=== PATIENT | male | born 1970 | race Two or more races ===

== ENCOUNTER 2016-08-12 01:25 | Emergency (ER) | payer MEDICARE, MEDICAID ==
[~2016-08-12] VITALS: Ht 172.7 cm; Wt 77.1 kg
[2016-08-12] MEDS ORDERED: LORAZEPAM INJ 2 MG/ML VIAL ONE ×3 (01:32→02:59)
--- NOTE | 2016-08-12 01:32 | NUR ---
PT BIBWIFE, PT STATES "I CANT STOP MOVING MY LEGS" PT NOTED VERY ANXIOUS. PT STATES LAST TOOK ALPRAZOLAM 2MG @2300. PT AOX3 RR EVEN AND UNLABORED. NO SOB NOTED. NAD NOTED. NO NVD AT THIS TIME. PT GOWNED AND PLACED ON MONITOR. DR. YATES AT BEDSIDE FOR EVAL.
[2016-08-12] MEDS ORDERED: diphenhydrAMINE HCL 50 MG/ML VIAL ONE (01:53)
[2016-08-12] MEDS ORDERED: HALOPERIDOL LACTATE INJ 5 MG/ML VIAL ONE (01:53)
--- NOTE | 2016-08-12 01:53 | NUR ---
INFORMED DR. YATES STILL NOTED AGITATED.
[2016-08-12] MEDS ORDERED: LORAZEPAM INJ 2 MG/ML VIAL IM ONE ×3 (02:00→03:00)
[2016-08-12] MEDS ORDERED: diphenhydrAMINE HCL 50 MG/ML VIAL IM ONE (02:00)
[2016-08-12] MEDS ORDERED: HALOPERIDOL LACTATE INJ 5 MG/ML VIAL IM ONE (02:00)
--- NOTE | 2016-08-12 02:31 | NUR ---
PT MOVED TO ER BED 7. PT AWARE
--- NOTE | 2016-08-12 03:08 | NUR ---
PT REFUSED IM MEDICATION. RISK AND BENEFITS EXPLAINED X3. PT STRONGLY REFUSED. DR. YATES AT BEDSIDE SPEAKING TO PT REGARDING POC.
--- NOTE | 2016-08-12 03:30 | NUR ---
Patient discharged to home in stable condition. Written and verbal after care instructions given. Patient verbalizes understanding of instruction. ambulatory with a steady gait. instructed not to drive. pt verbalize understanding.
[2016-08-12 03:31] VITALS: BP 118/68
== END 2016-08-12 03:31 | disposition home or self-care (01) ==
LOC: ER 01:26
DX: F41.9 Anxiety disorder, unspecified (principal); F32.9 Major depressive disorder, single episode, unspecified; F43.10 Post-traumatic stress disorder, unspecified; Z88.8 Allergy status to other drugs, medicaments and biological substances
CPT/HCPCS: 96372 ×4; 99284; A4606; J1200; J1630; J2060 ×3; Z7610

== ENCOUNTER 2016-10-04 00:15 | Emergency (ER) | payer MEDICARE, MEDICAID ==
[~2016-10-04] VITALS: Ht 165.1 cm; Wt 77.6 kg
--- NOTE | 2016-10-04 00:15 | NUR ---
46 YO MALE BB RA. CALLED EMS FOR BIZZARE BEHAVIOR, STATES IS YELLING NON SENSICAL WORDS AT HER, EMS TRANSPORTED TO [facility] ED. PT IS NOT FOLLOWING [facility] ED STAFF DIRECTIONS AT THIS TIME, PT DS TO ER BED BY EMS. SKIN IS WARM AND DRY, RR EVEN AND UNLABORED. PT PLACED ON DATA MANAGEMENT SPECIALIST, AWAITING ORDERS FROM PROVIDER
[2016-10-04] MEDS ORDERED: HALOPERIDOL LACTATE INJ 5 MG/ML VIAL ONE (00:19)
[2016-10-04] MEDS ORDERED: diphenhydrAMINE HCL 50 MG/ML VIAL ONE (00:19)
[2016-10-04] MEDS ORDERED: LORAZEPAM INJ 2 MG/ML VIAL ONE ×2 (00:19→03:27)
--- NOTE | 2016-10-04 00:25 | NUR ---
BASKETBALL COMMENTATOR AT BED SIDE FOR BLOOD DRAW
--- NOTE | 2016-10-04 00:27 | NUR ---
MEDICATED PT ORDERED
[2016-10-04] MEDS ORDERED: LORAZEPAM INJ 2 MG/ML VIAL IM ONE ×2 (00:30→04:00)
[2016-10-04] MEDS ORDERED: diphenhydrAMINE HCL 50 MG/ML VIAL IM ONE (00:30)
[2016-10-04] MEDS ORDERED: HALOPERIDOL LACTATE INJ 5 MG/ML VIAL IM ONE (00:30)
[2016-10-04 00:52] LABS: APPEARANCE,URINE CLEAR (CLEAR); BILIRUBIN,URINE NEGATIVE (NEGATIVE); BLOOD, URINE NEGATIVE Ery/uL (NEGATIVE); COLOR,URINE YELLOW (YELLOW); KETONES,URINE TRACE (NEGATIVE); LEUKOCYTE ESTERASE ,URINE NEGATIVE (NEGATIVE); NITRITE, URINE NEGATIVE (NEGATIVE); PROTEIN,URINE NEGATIVE (NEGATIVE); UGLUCOSE NEGATIVE (NEGATIVE)
--- NOTE | 2016-10-04 00:59 | NUR ---
PT RESTING IN ER BED, NAD NOTED, SKIN WARM AND DRY. PT IS ON REPRESENTATIVE PHLEBOTOMY SERVICES. WILL CONITNUE TO MONITOR
[2016-10-04 01:00] LABS: BASOPHILS % (AUTO) 0.3 % (0.0-2.0); EOSINOPHILS % (AUTO) 0.1 % (0.0-6.0); HEMATOCRIT 36 % (39-51); HEMOGLOBIN 12.4 g/dL (13.5-17.5); LYMPHOCYTES # (AUTO) 0.8 /CMM (0.8-4.8); LYMPHOCYTES % (AUTO) 10.9 % (20.0-44.0); MEAN CORPUSCULAR HEMOGLOBIN 32 PG (26.0-33.0); MEAN CORPUSCULAR HGB CONC 35 g/dl (31.0-36.0); MEAN CORPUSCULAR VOLUME 92 fL (80-96); MONOCYTES # (AUTO) 0.3 /CMM (0.1-1.30); MONOCYTES % (AUTO) 4.3 % (2.0-12.0); NEUTROPHILS % (AUTO) 84.4 % (43.0-81.0); PLATELET COUNT (AUTO) 205 /CMM (150-450); RED BLOOD CELL COUNT(AUTO) 3.91 MIL/uL (4.5-6.0); WHITE BLOOD COUNT (AUTO) 7.1 K/uL (4.3-11.0)
[2016-10-04 01:02] LABS: ALBUMIN 3.6 g/dL (3.4-5.0); BILIRUBIN,DIRECT 0.1 mg/dL (0.0-0.2); BILIRUBIN,TOTAL 0.5 mg/dL (0.2-1.0); CALCIUM, SERUM 8.4 mg/dL (8.5-10.1); CREATININE 0.9 mg/dL (0.6-1.3); POTASSIUM 2.9 mmol/L (3.5-5.1); SALICYLATE 0.7 mg/dL (2.8-20.0); TOTAL PROTEIN, SERUM 6.8 g/dL (6.4-8.2)
[2016-10-04 01:16] LABS: CANNABINOID, URINE NEGATIVE (NEGATIVE); PHENCYCLIDINE SCREEN,URINE NEGATIVE (NEGATIVE)
[2016-10-04 01:20] LABS: RBC,URINE 0-2 /HPF (0-2)
[2016-10-04 01:21] LABS: ADD URINE CULTURE NO; BACTERIA,URINE None seen /HPF (None Seen); MUCUS,URINE Few /LPF (None Seen); SQUAMOUS EPITHELIAL CELL,UR Rare /HPF (None Seen); WBC,URINE 0-2 /HPF (0-3)
[2016-10-04] MEDS ORDERED: POTASSIUM CHLORIDE 20 MEQ TAB.PRT.SR PO ONE ×3 (01:30→09:09)
[2016-10-04] MEDS ORDERED: OLANZAPINE 10 MG VIAL IM ONE ×2 (02:30→02:50)
--- NOTE | 2016-10-04 02:45 | NUR ---
PT BEGAN TO SCREAM, RESTLESS ACTIVITY, MD NOTIFIED. MEDICATED PT ORDERED
--- NOTE | 2016-10-04 03:36 | NUR ---
PT MEDICATED ORDERED FOR CONTINUED RESTLESSNESS, VERBAL OUTBURSTS, UNABLE TO LIE STILL, UNABLE TO ACCOUNT FOR OWN SAFETY. ON CONTINUOUS MONITORING.
--- NOTE | 2016-10-04 05:37 | NUR ---
PT CONTINUES TO BE RESTLESSNESS, VERBAL OUTBURSTS, UNABLE TO LIE STILL, UNABLE TO ACCOUNT FOR OWN SAFETY. ON CONTINUOUS MONITORING. SKIN WARM AND DRY, RR EVEN AND UNLABORED, WILL CONITUE TO MONITOR
--- NOTE | 2016-10-04 07:14 | NUR ---
report given to demetrius for iftikhar
--- NOTE | 2016-10-04 07:15 | NUR ---
RECEIVED REPORT FROM SUGEY FOR CASSIUS. PT ASLEEP AT THIS TIME. WILL CONTINUE TO MONITOR.
--- NOTE | 2016-10-04 10:43 | NUR ---
PT SAME CONDITION EARLIER. DENIES ANY PAIN . NO SOB. PT ASLEEP BUT AROUSABLE TO CALL OF NAME
--- NOTE | 2016-10-04 11:17 | NUR ---
K+ 2.9. MEDICATED ORDERED. SEE EMAR.
--- NOTE | 2016-10-04 15:02 | NUR ---
PT STILL ASLEEP BUT AROUSABLE TO TOUCH AND CALL OF NAME. DENIES ANY PAIN AND SOB. PT GOES BACK TO SLEEP. WILL CONTINUE TO MONITOR.
--- NOTE | 2016-10-04 20:14 | NUR ---
PT STILL ASLEEP BUT [place] DENIES ANY PAIN AND SOB. GAVE REPORT TO DAVONTE FOR CASSIUS
--- NOTE | 2016-10-04 20:30 | NUR ---
RESTAINTS REMOVED, PT NOTED ASLEEP, EASILY AROUSED, PT CALM AT THIS TIME.
--- NOTE | 2016-10-04 20:31 | NUR ---
RECIEVED REPORT FROM STEFANI ORNELAS
--- NOTE | 2016-10-04 22:16 | NUR ---
PT IS AWAKE. WAS GIVEN SANDWICH AND JUICE. AAO, AMBULATORY W/ STEADY GAIT. TO TAKE PT HOME. D/C IN STABLE CONDITION.
[2016-10-04 22:18] VITALS: BP 132/80
== END 2016-10-04 22:27 | disposition home or self-care (01) ==
LOC: ER 00:17
DX: F19.10 Other psychoactive substance abuse, uncomplicated (principal); F24 Shared psychotic disorder; F15.10 Other stimulant abuse, uncomplicated; F32.9 Major depressive disorder, single episode, unspecified; F43.10 Post-traumatic stress disorder, unspecified; Z88.8 Allergy status to other drugs, medicaments and biological substances
CPT/HCPCS: 36415; 80048; 80076; 80305; 80329; 81001; 85025; 96372 ×5; 99284; A4606; G0480 ×2; J1200; J1630; J2060 ×2; J3490; 81000-TC; G6039-TC; Z7610

== ENCOUNTER 2017-01-07 11:27 | Emergency (ER) | payer MEDICARE, MEDICAID ==
[~2017-01-07] VITALS: Ht 165.1 cm; Wt 72.6 kg
[2017-01-07] MEDS ORDERED: TRAZ-144 PO (11:43)
[2017-01-07] MEDS ORDERED: ESCI5TAB PO (11:43)
[2017-01-07] MEDS ORDERED: OLAN5TAB3 PO (11:43)
[2017-01-07] MEDS ORDERED: diphenhydrAMINE HCL 50 MG/ML VIAL ONE (11:46)
[2017-01-07] MEDS ORDERED: METOCLOPRAMIDE HCL 10 MG/2 ML VIAL ONE (11:46)
[2017-01-07] MEDS ORDERED: FAMOTIDINE/PF INJ 20 MG/2 ML VIAL IV ONE ×2 (11:47→12:00)
[2017-01-07 11:57] LABS: BASOPHILS # (AUTO) 0.1 /CMM (0.0-0.2); BASOPHILS % (AUTO) 1.7 % (0.0-2.0); EOSINOPHILS % (AUTO) 0.3 % (0.0-6.0); HEMATOCRIT 48 % (39-51); LYMPHOCYTES # (AUTO) 2.8 /CMM (0.8-4.8); LYMPHOCYTES % (AUTO) 41.3 % (20.0-44.0); MEAN CORPUSCULAR HEMOGLOBIN 31 PG (26.0-33.0); MEAN CORPUSCULAR HGB CONC 34 g/dl (31.0-36.0); MEAN CORPUSCULAR VOLUME 93 fL (80-96); MONOCYTES # (AUTO) 0.5 /CMM (0.1-1.30); MONOCYTES % (AUTO) 7.3 % (2.0-12.0); NEUTROPHILS # (AUTO) 3.3 /CMM (1.8-8.9); NEUTROPHILS % (AUTO) 49.4 % (43.0-81.0); PLATELET COUNT (AUTO) 275 /CMM (150-450); RDW COEFFICIENT OF VARIATION 12.9 (11.5-15.0); RED BLOOD CELL COUNT(AUTO) 5.16 MIL/uL (4.5-6.0); WHITE BLOOD COUNT (AUTO) 6.7 K/uL (4.3-11.0)
[2017-01-07] MEDS ORDERED: IV NS 0.9% 1,000 ML BAG IV ONE (12:00)
[2017-01-07] MEDS ORDERED: METOCLOPRAMIDE HCL 10 MG/2 ML VIAL IV ONE (12:00)
[2017-01-07] MEDS ORDERED: diphenhydrAMINE HCL 50 MG/ML VIAL IV ONE (12:00)
[2017-01-07 12:07] LABS: CALCIUM, SERUM 8.1 mg/dL (8.5-10.1); CARBON DIOXIDE 22 mmol/L (21-32); CHLORIDE 101 mmol/L (98-107); CREATININE 1.1 mg/dL (0.6-1.3); GLUCOSE 121 mg/dL (74-106); POTASSIUM 3.7 mmol/L (3.5-5.1); SODIUM SERUM 138 mmol/L (136-145); UREA NITROGEN, BLOOD 14 mg/dL (7-18)
[2017-01-07 12:10] LABS: INR 1.03 (0.87-1.13); PROTHROMBIN TIME 10.7 SECS (9.5-12.7)
[2017-01-07 12:15] LABS: TROPONIN I < 0.017 ng/mL (0.00-0.056)
[2017-01-07 12:19] LABS: ALANINE AMINOTRANSFERASE 41 U/L (12-78); ALBUMIN 4.1 g/dL (3.4-5.0); ALKALINE PHOSPHATASE 119 U/L (46-116); ASPARTATE AMINOTRANSFERASE 26 U/L (15-37); BILIRUBIN,DIRECT 0.1 mg/dL (0.0-0.2); BILIRUBIN,TOTAL 0.4 mg/dL (0.2-1.0); LIPASE 121 U/L (73-393)
[2017-01-07 14:03] VITALS: BP 136/91
== END 2017-01-07 14:04 | disposition home or self-care (01) ==
LOC: ER 11:29
DX: R10.13 Epigastric pain (principal); R11.2 Nausea with vomiting, unspecified; F43.10 Post-traumatic stress disorder, unspecified; F32.9 Major depressive disorder, single episode, unspecified; Z88.8 Allergy status to other drugs, medicaments and biological substances
CPT/HCPCS: 36415; 71010-TC; 80048-TC; 80076-TC; 83690-TC; 84484-TC; 85025-TC; 85730-TC; A4606; J1200; J2765; J3490; J7030; Z7610

== ENCOUNTER 2017-03-25 19:48 | Emergency (ER) | payer MEDICARE, MEDICAID ==
[~2017-03-25] VITALS: Ht 172.7 cm; Wt 68.0 kg
[~2017-03-25 19:48] MED LIST: ESCI5TAB PO; OLAN5TAB3 PO; TRAZ-144 PO
--- NOTE | 2017-03-25 19:55 | NUR ---
PT BIBA#102, PER EMS PT WAS TAKING APART ALL THE FURNITURE IN THE HOUSE AND PER EMS PT STATES HE STOPPED TAKING HIS PSYCH MEDS. PATIENT A/OX 1. BREATHING EVEN AND UNLABORED. DISORIENTED THOUGHTS AND IDEAS. VITALS REMAIN STABLE. SAFETY AND COMFORT MEASURES IN PLACE. AWAITING MD ORDERS.
[2017-03-25] MEDS ORDERED: LORAZEPAM 1 MG TABLET ONE (19:58)
[2017-03-25] MEDS ORDERED: LORAZEPAM 1 MG TABLET PO ONE (20:00)
[2017-03-25] MEDS ORDERED: LORAZEPAM INJ 2 MG/ML VIAL ONE (20:17)
[2017-03-25] MEDS ORDERED: HALOPERIDOL LACTATE INJ 5 MG/ML VIAL ONE (20:17)
[2017-03-25] MEDS ORDERED: diphenhydrAMINE HCL 50 MG/ML VIAL ONE ×2 (20:17→20:20)
--- NOTE | 2017-03-25 20:20 | NUR ---
KETOROLAC STOCKED IN BENADRYL SLOT. FIRST PULL WAS KETOROLAC, PULLED MEDICATIONS SECOND TIME IN ORDER TO PULL CORRECT DRUG OF ATIVAN. 2 VIALS OF KETOROLAC IN SLOT. PLACED IN BAG AND HANDED TO DAIRY CHEMISTCURLY FOR RETURN TO PHARMACY.
[2017-03-25] MEDS ORDERED: HALOPERIDOL LACTATE INJ 5 MG/ML VIAL IM ONE (20:30)
[2017-03-25] MEDS ORDERED: diphenhydrAMINE HCL 50 MG/ML VIAL IM ONE (20:30)
[2017-03-25] MEDS ORDERED: LORAZEPAM INJ 2 MG/ML VIAL IM ONE (20:30)
[2017-03-25 21:19] LABS: BASOPHILS % (AUTO) 0.7 % (0.0-2.0); HEMATOCRIT 42 % (39-51); HEMOGLOBIN 14.1 g/dL (13.5-17.5); LYMPHOCYTES # (AUTO) 0.6 /CMM (0.8-4.8); MEAN CORPUSCULAR HEMOGLOBIN 32 PG (26.0-33.0); MEAN CORPUSCULAR HGB CONC 34 g/dl (31.0-36.0); MEAN CORPUSCULAR VOLUME 94 fL (80-96); MONOCYTES # (AUTO) 0.3 /CMM (0.1-1.30); MONOCYTES % (AUTO) 6.4 % (2.0-12.0); NEUTROPHILS # (AUTO) 3.4 /CMM (1.8-8.9); NEUTROPHILS % (AUTO) 77.9 % (43.0-81.0); PLATELET COUNT (AUTO) 215 /CMM (150-450); RDW COEFFICIENT OF VARIATION 12.9 (11.5-15.0); RED BLOOD CELL COUNT(AUTO) 4.48 MIL/uL (4.5-6.0); WHITE BLOOD COUNT (AUTO) 4.3 K/uL (4.3-11.0)
[2017-03-25 21:35] LABS: ALANINE AMINOTRANSFERASE 20 U/L (12-78); ALBUMIN 3.7 g/dL (3.4-5.0); ALCOHOL, BLOOD < 3 mg/dL (0-0); ALKALINE PHOSPHATASE 98 U/L (46-116); ASPARTATE AMINOTRANSFERASE 22 U/L (15-37); BILIRUBIN,DIRECT 0.2 mg/dL (0.0-0.2); BILIRUBIN,TOTAL 0.6 mg/dL (0.2-1.0); CALCIUM, SERUM 8.8 mg/dL (8.5-10.1); CARBON DIOXIDE 26 mmol/L (21-32); CHLORIDE 103 mmol/L (98-107); CREATININE 0.9 mg/dL (0.6-1.3); GLUCOSE 106 mg/dL (74-106); POTASSIUM 3.4 mmol/L (3.5-5.1); SODIUM SERUM 138 mmol/L (136-145); TOTAL PROTEIN, SERUM 6.9 g/dL (6.4-8.2); UREA NITROGEN, BLOOD 12 mg/dL (7-18)
[2017-03-25 21:36] LABS: ACETAMINOPHEN < 2 ug/ml (10-30); SALICYLATE 0.8 mg/dL (2.8-20.0)
[2017-03-25] MEDS ORDERED: POTASSIUM CHLORIDE 20 MEQ TAB.PRT.SR PO ONE (22:00)
--- NOTE | 2017-03-25 22:10 | NUR ---
URINE OBTAINED VIA STRAIGHT CATH PER MD ORDERS AND SENT TO LAB.
[2017-03-25 22:30] LABS: APPEARANCE,URINE SL CLOUDY (CLEAR); BILIRUBIN,URINE NEGATIVE (NEGATIVE); BLOOD, URINE NEGATIVE Ery/uL (NEGATIVE); COLOR,URINE YELLOW (YELLOW); KETONES,URINE TRACE (NEGATIVE); LEUKOCYTE ESTERASE ,URINE NEGATIVE (NEGATIVE); NITRITE, URINE NEGATIVE (NEGATIVE); PROTEIN,URINE NEGATIVE (NEGATIVE); UGLUCOSE NEGATIVE (NEGATIVE)
[2017-03-25 22:45] LABS: BACTERIA,URINE None seen /HPF (None Seen); RBC,URINE 0-2 /HPF (0-2); WBC,URINE 0-2 /HPF (0-3)
[2017-03-25 22:46] LABS: SQUAMOUS EPITHELIAL CELL,UR Rare /HPF (None Seen); URINE AMORPHOUS PHOSPHATES Many /HPF (None Seen)
--- NOTE | 2017-03-25 23:22 | NUR ---
CALLED SRAVANI WILLIS FOR PSYCH EVAL.
--- NOTE | 2017-03-25 23:30 | NUR ---
PT REPORT RECIVED FROM VINCENT KO, PT IN BED ON MONITOR, PT SLEEPING IN NAD, MD GIRISH MADE AWARE WILL CONTINUE TO MONITOR.
--- NOTE | 2017-03-26 00:15 | NUR ---
ART AT BEDSIDE FOR EVAL
--- NOTE | 2017-03-26 02:22 | NUR ---
PT SLEEPING IN NAD PT ON MONITOR, VSS, EASILY AROUSIBLE, MD MADE AWARE WILL CONTINUE TO MONITOR.
--- NOTE | 2017-03-26 04:10 | NUR ---
Patient is resting comfortably in bed with eyes closed. Easily aroused. VSS
--- NOTE | 2017-03-26 05:52 | NUR ---
PT AWAKE BUT GROGGY, PT IS A/OX4 BREATHING EFFORTLESLY ON ROOM AIR, PT GIVEN FOOD AND SOMETHING TO DRINK, PT ON MONITOR, VSS, WILL CONTINUE TO MONITOR.
--- NOTE | 2017-03-26 09:08 | NUR ---
Patient is resting comfortably in bed with eyes closed. Easily aroused. VSS
--- NOTE | 2017-03-26 11:00 | NUR ---
ASSUME PT CARE. SLEEPING. EASILY AROUSABLE. ON MONITOR W/ STABLE VITALS. WILL CONTINUE TO MONITOR.
[2017-03-26] MEDS ORDERED: POTASSIUM CHLORIDE 20 MEQ TAB.PRT.SR PO ONE (11:10)
--- NOTE | 2017-03-26 14:31 | NUR ---
PT IS AWAKE. AMBULATORY W/ STEADY GAIT. OK FOR D/C PER DR CAVAZOS. D/C HOME STABLE CONDITION.
[2017-03-26 14:33] VITALS: BP 125/77
== END 2017-03-26 14:34 | disposition home or self-care (01) ==
LOC: ER 19:50
DX: F29 Unspecified psychosis not due to a substance or known physiological condition (principal); F15.10 Other stimulant abuse, uncomplicated; E87.6 Hypokalemia; F32.9 Major depressive disorder, single episode, unspecified; F43.10 Post-traumatic stress disorder, unspecified; F20.9 Schizophrenia, unspecified; Z91.14 Patient's other noncompliance with medication regimen; Z88.8 Allergy status to other drugs, medicaments and biological substances
CPT/HCPCS: 36415; 80048; 80076; 80305; 80329; 81001; 85025; 96372 ×3; 99284; A4606; G0480 ×2; J1200 ×2; J1630; J2060; 81000-TC; Z7610

== ENCOUNTER 2017-11-17 03:11 | Emergency (ER) | payer MEDICARE, MEDICAID ==
[~2017-11-17] VITALS: Ht 167.6 cm; Wt 77.1 kg
[~2017-11-17 03:11] MED LIST changes: -TRAZ-144 PO; +TRAZ-182 PO
--- NOTE | 2017-11-17 03:22 | NUR ---
BIB [facility]. NOT IN CUSTODY. A/OX1 UNCOOPERATIVE. PER PD "BIZZARE." NEG ACUTE DISTRESS. VSS. STABLE CONDITION. SAFETY MEASURES IN PLACE.
--- NOTE | 2017-11-17 03:34 | NUR ---
LAB AT BEDSIDE FOR BLOOD DRAW.
[2017-11-17 03:39] LABS: BASOPHILS % (AUTO) 0.1 % (0.0-2.0); EOSINOPHILS % (AUTO) 0.1 % (0.0-6.0); HEMATOCRIT 38 % (39-51); LYMPHOCYTES # (AUTO) 0.9 /CMM (0.8-4.8); LYMPHOCYTES % (AUTO) 10.5 % (20.0-44.0); MEAN CORPUSCULAR HGB CONC 34 g/dl (31.0-36.0); MEAN CORPUSCULAR VOLUME 94 fL (80-96); MONOCYTES # (AUTO) 0.4 /CMM (0.1-1.30); MONOCYTES % (AUTO) 5.2 % (2.0-12.0); NEUTROPHILS # (AUTO) 7.2 /CMM (1.8-8.9); NEUTROPHILS % (AUTO) 84.1 % (43.0-81.0); PLATELET COUNT (AUTO) 230 /CMM (150-450); RDW COEFFICIENT OF VARIATION 13.9 (11.5-15.0); RED BLOOD CELL COUNT(AUTO) 4.03 MIL/uL (4.5-6.0); WHITE BLOOD COUNT (AUTO) 8.6 K/uL (4.3-11.0)
[2017-11-17 03:55] LABS: ALANINE AMINOTRANSFERASE 27 U/L (12-78); ALBUMIN 3.6 g/dL (3.4-5.0); ALCOHOL, BLOOD < 3 mg/dL (0-0); ALKALINE PHOSPHATASE 167 U/L (46-116); ASPARTATE AMINOTRANSFERASE 26 U/L (15-37); BILIRUBIN,DIRECT 0.1 mg/dL (0.0-0.2); BILIRUBIN,TOTAL 0.4 mg/dL (0.2-1.0); CALCIUM, SERUM 8.4 mg/dL (8.5-10.1); CARBON DIOXIDE 23 mmol/L (21-32); CHLORIDE 99 mmol/L (98-107); CREATININE 1.1 mg/dL (0.6-1.3); GLUCOSE 107 mg/dL (74-106); POTASSIUM 3.9 mmol/L (3.5-5.1); SODIUM SERUM 134 mmol/L (136-145); UREA NITROGEN, BLOOD 13 mg/dL (7-18)
[2017-11-17 04:00] LABS: ACETAMINOPHEN 0 ug/ml (10-30); SALICYLATE 1.1 mg/dL (2.8-20.0)
--- NOTE | 2017-11-17 04:00 | NUR ---
ED CATH 14 MALAGASY IN/OUT
--- NOTE | 2017-11-17 04:12 | NUR ---
CALLED STEFANI CHASE FOR PSYCH EVAL.
[2017-11-17 04:22] LABS: APPEARANCE,URINE CLEAR (CLEAR); BILIRUBIN,URINE NEGATIVE (NEGATIVE); BLOOD, URINE NEGATIVE Ery/uL (NEGATIVE); COLOR,URINE YELLOW (YELLOW); KETONES,URINE NEGATIVE (NEGATIVE); LEUKOCYTE ESTERASE ,URINE NEGATIVE (NEGATIVE); NITRITE, URINE NEGATIVE (NEGATIVE); PROTEIN,URINE NEGATIVE (NEGATIVE); UGLUCOSE NEGATIVE (NEGATIVE); UROBILINOGEN,URINE 0.2 EU/dL (0.2)
--- NOTE | 2017-11-17 04:58 | NUR ---
SALVATORE AT BEDSIDE FOR EVAL.
[2017-11-17 05:26] VITALS: BP 138/16
== END 2017-11-17 05:28 | disposition home or self-care (01) ==
LOC: ER 03:17
DX: F15.10 Other stimulant abuse, uncomplicated (principal); I10 Essential (primary) hypertension; F17.200 Nicotine dependence, unspecified, uncomplicated; F10.10 Alcohol abuse, uncomplicated; Z59.0 Homelessness; Z88.8 Allergy status to other drugs, medicaments and biological substances; Y90.9 Presence of alcohol in blood, level not specified
CPT/HCPCS: 36415; 80048; 80076; 80305; 80329; 81001; 85025; 99284; A4606; G0480 ×2; 81000-TC; Z7610

== ENCOUNTER 2017-11-17 14:35 | Emergency (ER) | payer MEDICARE, MEDICAID ==
--- NOTE | 2017-11-17 14:44 | NUR ---
PT REFUSED TO BE SEEN
== END 2017-11-17 14:55 | disposition left against medical advice (07) ==
LOC: ER 14:43
DX: Z53.21 Procedure and treatment not carried out due to patient leaving prior to being seen by health care provider (principal)

== ENCOUNTER 2017-12-01 09:13 | Emergency (ER) | payer MEDICARE, MEDICAID ==
[~2017-12-01] VITALS: Ht 177.8 cm; Wt 72.6 kg
[~2017-12-01 09:13] MED LIST changes: +TRAZ-144 PO; -TRAZ-182 PO
--- NOTE | 2017-12-01 09:13 | NUR ---
[id number] FROM THE COURT HOUSE, STAFF CALLED 911 BECAUSE PT IS LETHARGIC, APPEARS VERY SLEEPY. PT ADMITS TAKING SOMA AT 0600AM BEFORE HE WENT TO HIS COURT APPOINTMENT. BS-110. PLACED ON CONT CARDIAC AND POX MONITORING. ALL NEEDS ARE ATTENDED, KEPT WARM AND COMFORTABLE, PENDING ER MD SMITH
[2017-12-01 09:55] LABS: BASOPHILS % (AUTO) 0.2 % (0.0-2.0); EOSINOPHILS % (AUTO) 0.9 % (0.0-6.0); HEMATOCRIT 36 % (39-51); HEMOGLOBIN 12.5 g/dL (13.5-17.5); LYMPHOCYTES # (AUTO) 1.1 /CMM (0.8-4.8); LYMPHOCYTES % (AUTO) 21.2 % (20.0-44.0); MEAN CORPUSCULAR HEMOGLOBIN 32 PG (26.0-33.0); MEAN CORPUSCULAR HGB CONC 35 g/dl (31.0-36.0); MEAN CORPUSCULAR VOLUME 92 fL (80-96); MONOCYTES # (AUTO) 0.3 /CMM (0.1-1.30); MONOCYTES % (AUTO) 5.4 % (2.0-12.0); NEUTROPHILS # (AUTO) 3.7 /CMM (1.8-8.9); NEUTROPHILS % (AUTO) 72.3 % (43.0-81.0); PLATELET COUNT (AUTO) 307 /CMM (150-450); RDW COEFFICIENT OF VARIATION 13.4 (11.5-15.0); WHITE BLOOD COUNT (AUTO) 5.1 K/uL (4.3-11.0)
[2017-12-01 10:04] LABS: CALCIUM, SERUM 8.5 mg/dL (8.5-10.1); CARBON DIOXIDE 26 mmol/L (21-32); CHLORIDE 107 mmol/L (98-107); CREATININE 1.2 mg/dL (0.6-1.3); GLUCOSE 111 mg/dL (74-106); SODIUM SERUM 138 mmol/L (136-145); UREA NITROGEN, BLOOD 17 mg/dL (7-18)
[2017-12-01 10:18] LABS: ACETAMINOPHEN 0 ug/ml (10-30); ALANINE AMINOTRANSFERASE 26 U/L (12-78); ALBUMIN 3.1 g/dL (3.4-5.0); ALKALINE PHOSPHATASE 215 U/L (46-116); ASPARTATE AMINOTRANSFERASE 19 U/L (15-37); BILIRUBIN,DIRECT 0.1 mg/dL (0.0-0.2); BILIRUBIN,TOTAL 0.4 mg/dL (0.2-1.0); SALICYLATE 0.8 mg/dL (2.8-20.0); TOTAL PROTEIN, SERUM 6.7 g/dL (6.4-8.2)
[2017-12-01 10:19] LABS: ALCOHOL, BLOOD < 3 mg/dL (0-0)
--- NOTE | 2017-12-01 12:28 | NUR ---
Patient is resting comfortably in bed with eyes closed. Easily aroused. VSS
--- NOTE | 2017-12-01 14:22 | NUR ---
Patient is resting comfortably in bed with eyes closed. Easily aroused. VSS
--- NOTE | 2017-12-01 16:02 | NUR ---
pt now awake, agitated, treathening and agressive to staff. dr fuchs aware. awaiting new order.
[2017-12-01] MEDS ORDERED: OLANZAPINE 10 MG VIAL IM ONE ×2 (16:23→16:30)
[2017-12-01] MEDS ORDERED: LORAZEPAM INJ 2 MG/ML VIAL ONE (16:24)
[2017-12-01] MEDS ORDERED: LORAZEPAM INJ 2 MG/ML VIAL IM ONE (16:30)
--- NOTE | 2017-12-01 17:05 | NUR ---
PT IS YELLING AND SCREAMING AT STAFF, PT PLACED INTO ER BED 15, [employer] CALLED
--- NOTE | 2017-12-01 17:51 | NUR ---
PT. VERBALIZED UNDERSTANDING OF AFTERCARE INSTRUCTIONS.Patient discharged to home in stable condition. Written and verbal after care instructions given. Patient verbalizes understanding of instruction.
[2017-12-01 17:52] VITALS: BP 94/58
== END 2017-12-01 17:53 | disposition home or self-care (01) ==
LOC: ER 09:16
DX: F19.10 Other psychoactive substance abuse, uncomplicated (principal); I10 Essential (primary) hypertension; F17.200 Nicotine dependence, unspecified, uncomplicated; Z88.8 Allergy status to other drugs, medicaments and biological substances
CPT/HCPCS: 36415; 70450-TC; 80048-TC; 80076-TC; 85025-TC; A4606; G0480; J2060; J3490; Z7610